=== PATIENT | male | born 1945 | race Caucasian/White ===

== ENCOUNTER 2017-02-13 08:47 | Inpatient (IN) | payer MEDICARE ==
--- NOTE | 2017-02-13 10:22 | CT ---
CT HEAD WITHOUT CONTRAST: Technique: Multiple axial tomograms were obtained through the head without IV enhancement. History: Trauma. Syncope. Fall. FINDINGS: Mild volume loss in the and associated ventriculomegaly. Mild chronic ischemic white matter change. N o evidence of intracranial hemorrhage. No evidence of acute infarct or edema. Diffuse mucosal edema i s seen in the ethmoid air cells, maxillary sinuses and sphenoid air cells. IMPRESSION: Chronic changes consistent with age. No acute intracranial process. POS: [facility]
[2017-02-13 10:23] LABS: #Eosinphils 0.1 thou/uL (0.0-0.7); #Lymphocytes 1.3 thou/uL (1.20-3.40); #Monocytes 0.9 thou/uL (0.11-0.59); #Neutrophils 12.3 thou/uL (1.40-6.50); %Basophils 0.1 % (0.0-1.0); %Eosinophils 0.5 % (0.0-10.0); %Monocytes 5.9 % (0.0-10.0); Hematocrit 53.3 % (42.0-52.0); Mean Platelet Volume 7.4 fL (7.4-10.4); Red Blood Cell (RBC) Count 5.67 mill/uL (4.70-6.10); White Blood Cell (WBC) Count 14.6 thou/uL (4.8-10.8)
--- NOTE | 2017-02-13 10:24 | RAD ---
SINGLE VIEW OF THE CHEST: Comparison: 01-05-10 History: Fall at home. Altered mental status. FINDINGS: Single view of the chest shows a normal sized cardiomediastinal silhouette. There is a left subclavia n pacemaker with its tips in the right atrium and ventricle. There is no evidence of consolidation, m ass or pleural effusion. IMPRESSION: No evidence of acute cardiopulmonary disease. POS: [facility]
--- NOTE | 2017-02-13 10:28 | CT ---
CT FACIAL BONES: Technique: Multiple axial tomograms were obtained through the facial bones with multiplanar reconstru ction. History: Syncope with fall. Injury to face. FINDINGS: There is evidence of a fracture involving the distal nasal ridge centrally and slightly to the right of midline. No significant overlying soft tissue swelling is seen and this may represent a remote fra cture. Recommend clinical correlation. The orbits appear intact. Lamina papyracea appear intact although there is diffuse mucosal edema invo lving the ethmoid air cells. Mucosal edema is seen in the frontal air cells and frontal recesses. Zyg billy appear intact. The maxilla appears intact although there is diffuse mucosal thickening seen in th e periphery of both maxillary sinuses. This may be chronic because there is suggestion of some mild t hickening of the maxillary sinus graham. The mandible appears intact. IMPRESSION: 1. There is evidence of a slightly depressed fracture involving the distal nasal ridge, age indetermi alley. Correlate clinically. 2. No other acute facial fracture seen. 3. Diffuse paranasal sinus mucosal disease as described. POS: [facility]
--- NOTE | 2017-02-13 10:31 | CT ---
CT CERVICAL SPINE WITHOUT CONTRAST: Comparison: None. History: Fall with syncope. Neck pain. Technique: Multiple contiguous axial tomograms were obtained through the cervical spine without contr ast. Sagittal and coronal reformats were performed. FINDINGS: There is a fracture of the left axillary ring of C1. This involves a fracture anteriorly and posterio rly. No other fractures of the cervical spine are seen. There is normal alignment of the vertebral kiley dies without subluxation. Normal alignment of the C1-2 interface is seen. Normal alignment of the sku ll base with the cervical spine is seen. The posterior facets are well aligned. Moderate degenerative changes are seen in the cervical spine. Nuchal calcifications are seen posteriorly. IMPRESSION: 1. Fracture of the left axillary ring of C1. Dr. Babcock notified of findings at 10:00 a.m. on 02-13-17. POS: [facility]
[2017-02-13 10:33] LABS: PTT 32.2 SEC (22.9-36.1)
[2017-02-13 10:37] LABS: Prothrombin Time 14.6 SEC (12.0-14.7)
[2017-02-13 10:49] LABS: ALT (SGPT) 34 U/L (8-55); AST (SGOT) 23 U/L (5-34); Alkaline Phosphatase 80 U/L (40-150); Anion Gap 12 mmol/L (10-20); BUN (Urea Nitrogen) 21 mg/dL (8.4-25.7); Bilirubin, Total 1.6 mg/dL (0.2-1.2); CK (CPK) 122 U/L (30-200); Calc. Creatinine Clearance 0 mL/min (70-130); Calcium 9.3 mg/dL (7.8-10.44); Carbon Dioxide 29 mmol/L (23-31); Chloride 103 mmol/L (98-107); Estimated GFR-MDRD 52; Globulin 3.2 g/dL (2.4-3.5); Lipase 31 U/L (8-78); Protein, Total 7.3 g/dL (5.8-8.1)
[2017-02-13 10:53] LABS: Troponin I Less than 0.010 ng/mL (< 0.028)
[2017-02-13] MEDS ORDERED: Lidocaine 1% w/Epinephrine 1:100K 20 ML VIAL ONE (11:09)
[2017-02-13] MEDS ORDERED: Ondansetron HCl/PF 4 MG/2 ML Vial IVP PRN (14:56)
[2017-02-13] MEDS ORDERED: Dextrose 50% Abboject 50 ML SYRINGE SLOW IVP PRN (14:56)
[2017-02-13] MEDS ORDERED: hydrALAZINE 20 MG/ML VIAL SLOW IVP PRN (14:56)
[2017-02-13] MEDS ORDERED: Dextrose 5% in Water 1,000 ML IV PRN (14:56)
[2017-02-13 15:04] VITALS: BMI 23.8
--- NOTE | 2017-02-13 16:10 | HP ---
DATE OF ADMISSION: 02/13/2017 DATE OF CONSULTATION: 02/13/2017 ATTENDING PHYSICIAN: Roel Sanchez D.O. CONSULTING PHYSICIAN: Joseph Daniels M.D., Neurosurgery. HISTORY OF PRESENT ILLNESS: A 71-year-old male who presented to the ED today after an unwitnessed fall. Patient has a history of Alzheimer's dementia and events leading to the fall are limited. The patient's reported that she noticed the patient was more shaky than normal this morning when she gave him his breakfast and then subsequently left for work. She then called a friend to go check on the patient about one hour later. She then got a call from the friend saying she found the patient down with a laceration on his scalp. Patient has a history of syncope with a fall one year ago after which a pacemaker was placed. He is currently on Eliquis for atrial fibrillation. Workup in the ED identified C1 fracture. Brain CT was read as negative; however , neurosurgeon identified a small tentorial subdural hematoma. Trauma Services have been consulted for admission and management. PAST MEDICAL HISTORY: Hypertension, Alzheimer dementia, asthma, atrial fibrillation. PAST SURGICAL HISTORY: Pacemaker and hernia repair. SOCIAL HISTORY: Patient lives at home with his . denies the patient' s alcohol, drug or tobacco use. ALLERGIES: No known drug allergies. MEDICATIONS: Albuterol sulfate 2 puffs inhaled 4 times daily, Eliquis 5 mg tab p.o. twice daily, vitamin D3 2000 units p.o. daily, Aricept 10 mg p.o. daily, metoprolol 25 mg p.o. daily, Singulair 10 mg p.o. at bedtime. REVIEW OF SYSTEMS: Unable to be obtained secondary to patient's dementia. PHYSICAL EXAMINATION: VITAL SIGNS: Blood pressure 162/89, pulse 63, respirations 17, temperature 98.2 oral, O2 sat 99% room air. GENERAL: A 71-year-old male in no acute distress. HEENT: Laceration to the crown and occipital scalp which has been closed with sutures by DENI Linn. No uncontrolled bleeding. NECK: Cervical collar is in place. No tracheal deviation, no JVD. PULMONARY: Bilateral breath sounds clear to auscultation. No respiratory distress. CARDIOVASCULAR: Regular rate and rhythm. Heart sounds normal. ABDOMEN: Soft, nontender, nondistended. EXTREMITIES: Range of motion normal, cap refill brisk. NEUROLOGIC: GCS 14, eyes 4, verbal 4, motor 6. LABORATORY DATA: WBC 14.6, RBC 5.67, HGB 17.9 HCT 53.3, platelets 342. Sodium 140, potassium 3.9, chloride 103, carbon dioxide 29, anion gap 12, BUN 21, creatinine 1.34, glucose 128, total bilirubin 1.6. Diagnostic imaging, cervical spine CT, fracture of left axillary ring of C1. Brain CT, no acute intracranial process per radiologist read, tentorial subdural hematoma per neurosurgeon read. ASSESSMENT AND PLAN: 1. A 71-year-old female status post unwitnessed fall. 2. C1 fracture. 3. Subdural hematoma. 4. History of anticoagulant use - Eliquis. 5. History of dementia. 6. Laceration to scalp closed by the ER M.D. PLAN: 1. Admit to the intermediate care unit via trauma services. 2. Consult to Dr. Daniels, Neurosurgery. 3. Local wound care. 4. Repeat head CT in a.m. 5. Place Falcon collar to be worn at all times. 6. No chemical DVT prophylaxis or blood thinners. 7. N.p.o., IV fluids. Patient's physical exam, assessment and plan were discussed at length with the patient's . Extensive discussion was held regarding patient's code status. reports that previously patient and she decided that the patient would prefer to be DNR. At this time, she requires patient be made DNR. She reports understanding of assessment and plan of care. She agrees with recommendations. The patient was seen and examined with Dr. Sanchez. SOPHIA
[2017-02-13] MEDS: Sodium Chloride 0.9% 1,000 ML IV SCH ×2 (16:25→22:40)
[2017-02-13] MEDS: Montelukast Sodium 10 mg Tablet PO SCH (21:16)
[2017-02-13] MEDS: Famotidine/PF 20 mg/2ml Vial SLOW IVP SCH (21:16)
[2017-02-13] MEDS: Metoprolol Tartrate 25 MG TAB PO SCH (21:16)
[2017-02-13] MEDS ORDERED: Acetaminophen 500 MG TAB PO SCH (22:00)
--- NOTE | 2017-02-14 01:04 | CON ---
This is Tashi Gibbons PA-C, dictating for Dr. Joseph Daniels. DATE OF CONSULTATION: 02/13/2017 This is a 50-minute initial patient consult in which greater than 50% of the exam was spent in counse ling and coordinating the patient's care. The remainder of the exam was spent in review of patient's medical record and appropriate imaging studies. CHIEF COMPLAINT: Status post fall with tentorial subdural hematoma and C1 burst fracture. HISTORY OF PRESENT ILLNESS: Mr. Olivier is a pleasant, but demented 71-year-old male who presented t [facility] Emergency Room with his for the above complaints. Apparently, the patient fell res ulting in an axial load injury sustaining a scalp laceration as well as a tentorial subdural hematoma found on CT scan. The patient is currently on Eliquis for atrial fibrillation. The patient's CT sc an of the cervical spine showed a nondisplaced C1 burst fracture, also known as a Deng fracture. The patient has a significant expressive aphasia and his dementia significantly limits his history and physical exam. His is at bedside, notes that he is at neurologic baseline, although current ly during the exam. She notes that he has been experiencing some sundowning symptoms. PHYSICAL EXAMINATION: The patient remains with his eyes closed, although does open his eyes to voice . His GCS is currently 14. He attempts to follow commands in all 4 extremities to do this int ermittently. Pupils are equal, round and reactive bilaterally. The patient is predominately nonverb al, although will answer yes or no to some questions. I am unable to determine if he has pronator dr anusha. IMPRESSION AND DIAGNOSES: Status post fall with tentorial subdural hematoma and C1 left burst fractu re. PLAN: I have discussed the head and neck CT findings with Dr. Daniels as well as the patient's . At this time, we will repeat the patient's head CT in the morning and hold his blood thinners. I wo uld like his head of bed should be elevated at 30 degrees at all times and he should remain in his As pen collar at all times. I did let the patient's know that he should not require neurosurgical intervention for either of his injuries, although he will need to remain in an [place] collar at all ti mes, Wake collar for showers. I will make him n.p.o. at midnight and await the CT scan resul ts. I would like his systolic blood pressure to remain less than 160. I have also discussed the anselmo kim's case with the trauma nurse practitioner. We will follow up on the patient's neurologic exam a nd head CT, otherwise please call with any changes or concerns.
[2017-02-14 05:21] LABS: Anion Gap 11 mmol/L (10-20); BUN (Urea Nitrogen) 23 mg/dL (8.4-25.7); Calc. Creatinine Clearance 60 mL/min (70-130); Calcium 8.5 mg/dL (7.8-10.44); Carbon Dioxide 28 mmol/L (23-31); Chloride 108 mmol/L (98-107); Estimated GFR-MDRD 52; Magnesium 2.2 mg/dL (1.6-2.6); Phosphorus 3.1 mg/dL (2.3-4.7)
--- NOTE | 2017-02-14 05:29 | CON ---
DATE OF CONSULTATION: 02/14/2017 PRIMARY CARE PROVIDER: Dr. Smith. PRIMARY SERVICE ATTENDING: Dr. Sanchez. REASON FOR CONSULTATION: General medical management. HISTORY OF PRESENT ILLNESS: This is a 71-year-old male who initially presented to [facility] Emergency Department after an unwitnessed fall. Patient with a known histo ry of advanced dementia of Alzheimer's type with apparent unwitnessed fall at home. 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 Patient apparently was found down by a family friend discovered with laceration on the sc alp. The patient apparently had a syncopal event approximately 1 year prior to this evaluation at ich point a pacemaker was placed. Currently, on chronic anticoagulation with Eliquis for chronic atr ial fibrillation. Evaluation in the emergency department revealed a C1 burst fracture, at which poin t the patient was placed in an [place] collar. CT of the brain was initially read as negative; however , review by the neurosurgical team showed a small tentorial subdural hematoma. The patient currently managed conservatively in the intermediate care unit. The history is obtained [facility]. Review of the emergency room records and prior consult reports as patient is unable to provide a coherent history due to advanced dementia. PAST MEDICAL HISTORY: 1. Hypertension. 2. Chronic kidney disease stage 3. 3. Chronic atrial fibrillation on chronic anticoagulation with Eliquis. 4. Status post pacemaker placement. 5. Alzheimer dementia, advanced. 6. History of asthma. 7. History of right retinal occlusion with retinopathy. PAST SURGICAL HISTORY: 1. Status post inguinal hernia repair. 2. Status post pacemaker placement. CURRENT MEDICATIONS: 1. ProAir RespiClick 2 puffs inhaled q.i.d. p.r.n. 2. Eliquis 5 mg p.o. b.i.d. 3. Vitamin D3 2000 units p.o. daily. 4. Aricept 10 mg p.o. daily. 5. Metoprolol tartrate 25 mg p.o. b.i.d. 6. Singulair 10 mg p.o. at bedtime. ALLERGIES: No known drug allergies. FAMILY HISTORY: Mom with lung cancer. Dad with history of CVA. SOCIAL HISTORY: Patient resides in [place], [place]. 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 No alcoh ol, tobacco, or illicit drug use. Remote history of tobacco use as a teenager. REVIEW OF SYSTEMS: Unobtainable as patient has advanced dementia. PHYSICAL EXAMINATION: VITAL SIGNS: Currently, blood pressure 156/73, pulse 64, respiratory rate 18, temperature 100.2 degr ees Fahrenheit, O2 saturation 100% on room air. GENERAL APPEARANCE: This is a 71-year-old male lying quietly on the hospital bed, alert an d oriented x1 to name and in no acute distress. HEENT: Pupils are equal, round, and reactive to light and accommodation. Extraocular muscles are in tact. No scleral icterus, no conjunctival injection. Scalp with crescent-shaped laceration at the v ertex. Nares patent. OP is clear. Cervical collar in place. NECK: Supple, no adenopathy appreciated. No JVD noted. CHEST: Lungs are clear to auscultation bilaterally. CARDIOVASCULAR: S1, S2 with distant heart sounds. ABDOMEN: Rounded, soft, nontender, nondistended. Bowel sounds are positive in all four quadrants. There is no hepatosplenomegaly, no abdominal bruits, no rebound or guarding appreciated. EXTREMITIES: Warm and dry with fair turgor. No clubbing, cyanosis or asymmetric edema appreciated. Pulses palpable distally at the dorsalis pedis, posterior tibial, and popliteal arteries bilaterally . Capillary refill less than 2 seconds. NEUROLOGIC: Expressive aphasia noted. Opens eyes to name. Not observed ambulatory during this exam . PERTINENT LABORATORY AND X-RAY FINDINGS: Sodium 140, potassium 3.9, chloride 103, CO2 of 29, BUN 21, creatinine 1.34 with estimated GFR 52, glucose 128, calcium 9.3, total bilirubin 1.6, AST 23, ALT of 34, alkaline phosphatase 80, Troponin I negative x1. Albumin 4.1, lipase 31. CBC showed a white bl ood cell count 14.6, hemoglobin 18, hematocrit 53, platelet count 242 with 85% neutrophilia. PT 14.6 , INR 1.1, PTT 32.2. CT of the brain without contrast dated 02/13/2017 showed chronic changes consis tent with age. No acute intracranial process identified. CT of the cervical spine dated 02/13/2017 showed fracture of the left axillary ring of C1. Portable chest x-ray dated 02/13/2017 showed no acu te cardiopulmonary process. CT of the facial bones dated 02/13/2017 showed slightly depressed fractu re involving the distal nasal ridge. Repeat CT of the brain dated 02/14/2017 showed minimal left ten torial thickening and trace subdural hematoma. Telemetry monitoring shows atrial flutter with contro lled rate in the 60s. ASSESSMENT AND PLAN: 1. C1 burst fracture status post mechanical fall. Conservative management with a cervical collar. Neurosurgery and Trauma Service following clinically. 2. Minimal subdural hematoma. No surgical intervention recommended. Continue to observe clinically . 3. Status post mechanical fall versus syncope, etiology unclear. Unwitnessed per report. Continue symptomatic and supportive management. General fall risk precautions. PT evaluation for functional assessment. 4. Chronic atrial fibrillation with chronic anticoagulation with Eliquis. Hold Eliquis due to small subdural hematoma. Patient may not be an appropriate candidate for ongoing anticoagulation due to h istory of falls with advanced dementia. 5. Alzheimer's dementia advanced. Resume Aricept 10 mg p.o. daily. 6. Hypertension. Continue metoprolol 25 mg p.o. b.i.d. Continue serial blood pressure monitoring. 7. Status post scalp laceration post-mechanical fall. Continue local wound care. Pain control as c linically indicated. 8. Prophylaxis. Sequential compression devices while in bed. Pepcid 20 mg p.o. b.i.d. 9. CODE STATUS: DO NOT RESUSCITATE. Confirmed with patient's . Thank you for the consult. We will continue to follow with primary service.
[2017-02-14 05:30] LABS: #Eosinphils 0.1 thou/uL (0.0-0.7); #Lymphocytes 1.8 thou/uL (1.20-3.40); #Monocytes 1.1 thou/uL (0.11-0.59); #Neutrophils 8.8 thou/uL (1.40-6.50); %Eosinophils 0.6 % (0.0-10.0); %Lymphocytes 15.4 % (21.0-51.0); %Monocytes 9.7 % (0.0-10.0); Hematocrit 43.7 % (42.0-52.0); Mean Platelet Volume 7.2 fL (7.4-10.4); Red Blood Cell (RBC) Count 4.59 mill/uL (4.70-6.10); White Blood Cell (WBC) Count 11.8 thou/uL (4.8-10.8)
[2017-02-14] MEDS: Sodium Chloride 0.9% 1,000 ML IV SCH (06:30)
--- NOTE | 2017-02-14 07:51 | CT ---
PRELIMINARY REPORT/[facility]/EMERGENCY AFTER HOURS PROCEDURE: EXAM: CT Head Without Intravenous Contrast CLINICAL HISTORY: 71 years old, male; Condition or disease; Other: F/u tentorial sdh; Additional info: Previous exam in vrad worklist under CT face accession TECHNIQUE: Axial computed tomography images of the head/brain without intravenous contrast. COMPARISON: No relevant prior studies available. FINDINGS: Brain: Question minimal thickening of the left tentorium Mild volume loss. Mild white matter disease. No edema. Ventricles: Unremarkable. No ventriculomegaly. Bones/joints: Unremarkable. No acute fracture. Soft tissues: Unremarkable. Sinuses: Air-fluid levels in the sphenoid sinuses with associated mucosal thickening. Mucosal thicken ing in the anterior paranasal sinuses. Mastoid air cells: Unremarkable as visualized. No mastoid effusion. IMPRESSION: Question minimal left tentorial thickening/trace subdural hemorrhage, grossly stable Thank you for allowing us to participate in the care of your patient. Dictated and Authenticated by: Douglas Ty MD 02/14/2017 4:35 AM Central Time ([place] & [place]) FINAL REPORT CT HEAD WITHOUT CONTRAST: COMPARISON: 02/13/17. FINDINGS: Mild cortical volume loss. There is some questionable thickening of the tentorium which is unchanged from 02/13/17 suggesting ch ronic stable finding. No acute hemorrhage. No interval change. I am in agreement with the preliminary report. POS: [facility]
--- NOTE | 2017-02-14 09:49 | PRG ---
DATE OF SERVICE: 02/14/2017 This is a 30 minute initial hospital visit note in which 30 minutes were spent in review of the imagi ng, record, evaluation and examination of the patient, and formulation of a plan. Greater than 50% o f the time was spent in counseling on Fatemeh Olivier. CHIEF COMPLAINT: Tentorial acute subdural hematoma status post fall onto vertex with a Deng's f racture. HISTORY OF PRESENT ILLNESS: Mr. Olivier is a 71-year-old man with dementia. He fell yesterday. He has had his laceration repaired. His is the primary caregiver. She is also a nurse. Head CT d emonstrated a nonworrisome acute subdural hematoma along the tentorium. He is on Eliquis for atrial fibrillation. The repeat head CT this morning demonstrates already improvement in acute subdural hem atoma. Cervical spine CT demonstrated a Deng's fracture, eccentric to the left. We are managin g this in a C-collar. PHYSICAL EXAMINATION: On exam he is verbal, but is at times inappropriate to the context. This is h is baseline his states, he follows commands otherwise. He is in a well-fitting collar. IMPRESSION AND PLAN: We will arrange for a Glade collar. The duration of the collar should b e at all times for the next 3 months. We will arrange followup in 1 month with a repeat head CT off Eliquis and upright AP, lateral and open mouth odontoid cervical spine x-rays. He may be dismissed w henever deemed stable. DIAGNOSES: 1. Deng's fracture. 2. Tentorial acute subdural hematoma status post fall on vertex of skull.
[2017-02-14] MEDS: Donepezil HCl 10 MG TAB PO SCH (09:57)
[2017-02-14] MEDS: Famotidine/PF 20 mg/2ml Vial SLOW IVP SCH ×2 (09:57→21:07)
[2017-02-14] MEDS: Metoprolol Tartrate 25 MG TAB PO SCH ×2 (09:57→21:08)
--- NOTE | 2017-02-14 13:54 | PDOC.PN ---
- Subjective Encounter Start Date: 02/14/17 Encounter Start Time: 12:30 Subjective: awake, not oriented, is talking but most of it wont make sense - Objective Resuscitation Status: Resuscitation Status DNR:Do Not Resuscitate MAR Reviewed: Yes Vital Signs & Weight: Vital Signs (12 hours) Temp Pulse Resp BP Pulse Ox 02/14/17 08:00 98.7 F 65 18 02/14/17 07:19 98.7 F 65 18 165/78 H 97 02/14/17 06:21 64 18 169/80 H 98 02/14/17 04:00 98.8 F 64 16 158/72 H 99 02/14/17 02:18 64 16 147/73 H 98 Weight Weight 188 lb 3 oz I&O: 02/13/17 02/14/17 02/15/17 06:59 06:59 06:59 Intake Total 1510 Output Total 350 Balance 1160 Result Diagrams: 02/14/17 04:50 02/14/17 04:50 Phys Exam - Physical Examination HEENT: PERRLA, sclera anicteric Neck: no JVD in C.collar Respiratory: no wheezing, no rales Cardiovascular: RRR, no significant murmur Gastrointestinal: soft, non-tender, positive bowel sounds Musculoskeletal: no edema, pulses present Neurological: non-focal, moves all 4 limbs Dx/Plan (1) Paroxysmal A-fib Code(s): I48.0 - PAROXYSMAL ATRIAL FIBRILLATION Status: Chronic (2) HTN (hypertension) Code(s): I10 - ESSENTIAL (PRIMARY) HYPERTENSION Status: Chronic Qualifiers: Hypertension type: essential hypertension Qualified Code(s): I10 - Essential (primary) hypertension (3) Dementia Code(s): F03.90 - UNSPECIFIED DEMENTIA WITHOUT BEHAVIORAL DISTURBANCE Status: Chronic Qualifiers: Dementia type: Alzheimer's disease Alzheimer's disease onset: unspecified onset (4) C1 cervical fracture Code(s): S12.000A - UNSP DISP FX OF FIRST CERVICAL VERTEBRA, INIT FOR CLOS FX Status: Acute Qualifiers: Encounter type: subsequent encounter Fracture type: closed (5) SDH (subdural hematoma) Code(s): I62.00 - NONTRAUMATIC SUBDURAL HEMORRHAGE, UNSPECIFIED Status: Acute (6) Asthma Code(s): J45.909 - UNSPECIFIED ASTHMA, UNCOMPLICATED Status: Chronic Qualifiers: Asthma severity: mild Asthma persistence: intermittent Asthma complication type: unspecified Qualified Code(s): J45.20 - Mild intermittent asthma, uncomplicated (7) CKD (chronic kidney disease) stage 3, GFR 30-59 ml/min Code(s): N18.3 - CHRONIC KIDNEY DISEASE, STAGE 3 (MODERATE) Status: Chronic (8) Pacemaker Code(s): Z95.0 - PRESENCE OF CARDIAC PACEMAKER Status: Chronic - Plan may tx to med/med surg if ok with surgery -: is in a collar -: oral diet, make sure he is not aspirating -: may dc iv fluids -: continue lopressor, singulair and may hold aricept for now * . Review of Systems - Medications/Allergies Allergies/Adverse Reactions: Allergies Allergy/AdvReac Type Severity Reaction Status Date / Time No Known Drug Allergies Allergy Verified 02/13/17 15:04 Medications: Current Medications Dextrose/Water (Dextrose 50%) 25 gm SLOW IVP PRN PRN PRN Reason: Hypoglycemia Donepezil HCl (Aricept) 10 mg PO DAILY [facility] Last Admin: 02/14/17 09:57 Dose: 10 mg Famotidine (Pepcid) 20 mg SLOW IVP Q12HR [facility] Last Admin: 02/14/17 09:57 Dose: 20 mg Glucagon (Glucagon) 1 mg IM PRN PRN PRN Reason: Hypoglycemia Hydralazine HCl (Apresoline) 10 mg SLOW IVP Q6H PRN PRN Reason: SBP GREATER THAN 160 Dextrose/Water (D5w) 1,000 mls @ 0 mls/hr IV .Q0M PRN; As Directed PRN Reason: Hypoglycemia Metoprolol Tartrate (Lopressor) 25 mg PO BID [facility] Last Admin: 02/14/17 09:57 Dose: 25 mg Montelukast Sodium (Singulair) 10 mg PO HS [facility] Last Admin: 02/13/17 21:16 Dose: 10 mg Ondansetron HCl (Zofran) 4 mg IVP Q6H PRN PRN Reason: Nausea Sodium Chloride (Flush - Normal Saline) 10 ml IVF PRN PRN PRN Reason: Saline Flush
--- NOTE | 2017-02-14 14:31 | PRG ---
DATE OF SERVICE: 02/14/2017 ATTENDING PHYSICIAN: Dr. Chris Wilson. SUBJECTIVE: A 71-year-old male admitted one day ago, status post fall with C1 burst fracture that thrasher s been managed in the [place] collar and a small tentorial subdural hematoma. He was placed in the Int ensive Care Unit where he has remained stable overnight. Patient has a history of dementia and has p reviously been on anticoagulation for atrial fibrillation. He had minimal subdural hematoma noted on the original CT scan; however, that has improved. Neurosurgery has cleared the patient to be discha rged when medically appropriate to do so. Hospital medicine is following for general medical managem ent. OBJECTIVE: VITAL SIGNS: Temperature 98.7, 65 pulse, 18 respirations, 97% O2 sat on room air and 165/78 blood pr essure. GENERAL: A 72-year-old male in no acute distress. HEENT: Scalp laceration to the crown and occipital scalp closed with sutures. No active bleeding. No infection noted. PULMONARY: Bilateral breath sounds clear to auscultation. No respiratory distress. CARDIOVASCULAR: Regular rate and rhythm. Normal heart sounds. ABDOMEN: Soft, nontender and nondistended. EXTREMITIES: Moves all extremities well. Pulses are palpable. Cap refill brisk. NEUROLOGIC: GCS 14. E4 V4 M6. Expressive aphasia noted. Able to speak his name. ASSESSMENT: A 71-year-old male with: 1. Status post fall. 2. Minimal subdural hematoma, improving on subsequent CT scan. No neurosurgical intervention recomm ended. 3. C1 fracture managed with [place] collar. No neurosurgical intervention recommended. 4. Chronic atrial fibrillation, on Eliquis. 5. Progressive dementia. 6. Status post closure of scalp laceration. PLAN: 1. Start on regular diet 2. Discontinue IV fluids. 3. Continue [place] collar until cleared by Neurosurgery. 4. Continue to hold chemical DVT prophylaxis and all anticoagulation until cleared by Neurosurgery. 5. Continue home medications. 6. PT, OT evaluation for mobilization. 7. Case management consult for discharge planning. The patient will likely need placement after thi s hospitalization. 8. Transfer out to the surgical floor today. We will possibly need a sitter if the family is not at bedside. Physical examination, assessment and plan of care were discussed with attending trauma surgeon.
[2017-02-14] MEDS ORDERED: Haloperidol Lactate 5 MG/ML VIAL IM PRN (17:31)
[2017-02-14] MEDS ORDERED: Non-Formulary Item 1 EACH (Albuterol Sulfate [Proair Respiclick] 2 PUFF) INH PRN (17:32)
[2017-02-14] MEDS ORDERED: Ziprasidone 20 MG VIAL IM PRN (17:52)
--- NOTE | 2017-02-14 17:57 | PRG ---
DATE OF SERVICE: 02/14/2017 Please see Aretha Rodriguez note for details. SUBJCETIVE: Mr. Olivier is having some confusion this evening. His states he get some small do se of Benadryl at home for this and it is normal. He was more agitated this afternoon, especially wh en he had urinate. He awakens to voice, especially to the . OBJECTIVE: VITAL SIGNS: He has been afebrile. Vital signs are stable. ABDOMEN: Soft, nontender. C-collar is in place for his C1 fracture. ASSESSMENT: Confusion at times. PLAN: Probably safe to go to the floor with a sitter. We will use Cassie garsia in agitation.
[2017-02-14] MEDS ORDERED: Amlodipine 10 MG TAB PO SCH (19:45)
[2017-02-14] MEDS: cloNIDine 0.1 MG TAB PO SCH (21:07)
[2017-02-14] MEDS: Montelukast Sodium 10 mg Tablet PO SCH (21:09)
[2017-02-14] MEDS: Albuterol Sulfate 1.25 MG/3 ML NEB NEB SCH (22:39)
[2017-02-15] MEDS: Albuterol Sulfate 1.25 MG/3 ML NEB NEB SCH ×2 (08:19→15:28)
[2017-02-15] MEDS: Metoprolol Tartrate 25 MG TAB PO SCH ×2 (09:36→20:40)
[2017-02-15] MEDS: Amlodipine 10 MG TAB PO SCH (09:36)
[2017-02-15] MEDS: cloNIDine 0.1 MG TAB PO SCH ×2 (09:37→20:40)
[2017-02-15] MEDS: Donepezil HCl 10 MG TAB PO SCH (09:37)
[2017-02-15] MEDS: Famotidine/PF 20 mg/2ml Vial SLOW IVP SCH ×2 (09:37→20:40)
--- NOTE | 2017-02-15 13:27 | PDOC.PN ---
- Subjective Encounter Start Date: 02/15/17 Encounter Start Time: 08:30 Subjective: awake, working with OT -: is amb in hallway -: not oriented - Objective Resuscitation Status: Resuscitation Status DNR:Do Not Resuscitate MAR Reviewed: Yes Vital Signs & Weight: Vital Signs (12 hours) Temp Pulse Resp BP Pulse Ox 02/15/17 12:00 98.6 F 76 14 110/56 L 95 02/15/17 08:19 76 16 02/15/17 08:00 97.7 F 90 16 159/88 H 97 02/15/17 04:22 98.9 F 100 20 147/80 H 93 L Weight Weight 188 lb 3 oz I&O: 02/14/17 02/15/17 02/16/17 06:59 06:59 06:59 Intake Total 1510 340 Output Total 350 Balance 1160 340 Result Diagrams: 02/14/17 04:50 02/14/17 04:50 Phys Exam - Physical Examination HEENT: PERRLA, moist MMs Neck: no JVD, supple Respiratory: no wheezing, no rales Cardiovascular: RRR, no significant murmur Gastrointestinal: soft, non-tender, positive bowel sounds Musculoskeletal: no edema, pulses present Neurological: non-focal, moves all 4 limbs Dx/Plan (1) Paroxysmal A-fib Code(s): I48.0 - PAROXYSMAL ATRIAL FIBRILLATION Status: Chronic (2) HTN (hypertension) Code(s): I10 - ESSENTIAL (PRIMARY) HYPERTENSION Status: Chronic Qualifiers: Hypertension type: essential hypertension Qualified Code(s): I10 - Essential (primary) hypertension (3) Dementia Code(s): F03.90 - UNSPECIFIED DEMENTIA WITHOUT BEHAVIORAL DISTURBANCE Status: Chronic Qualifiers: Dementia type: Alzheimer's disease Alzheimer's disease onset: unspecified onset (4) C1 cervical fracture Code(s): S12.000A - UNSP DISP FX OF FIRST CERVICAL VERTEBRA, INIT FOR CLOS FX Status: Acute Qualifiers: Encounter type: subsequent encounter Fracture type: closed (5) SDH (subdural hematoma) Code(s): I62.00 - NONTRAUMATIC SUBDURAL HEMORRHAGE, UNSPECIFIED Status: Acute (6) Asthma Code(s): J45.909 - UNSPECIFIED ASTHMA, UNCOMPLICATED Status: Chronic Qualifiers: Asthma severity: mild Asthma persistence: intermittent Asthma complication type: unspecified Qualified Code(s): J45.20 - Mild intermittent asthma, uncomplicated (7) CKD (chronic kidney disease) stage 3, GFR 30-59 ml/min Code(s): N18.3 - CHRONIC KIDNEY DISEASE, STAGE 3 (MODERATE) Status: Chronic (8) Pacemaker Code(s): Z95.0 - PRESENCE OF CARDIAC PACEMAKER Status: Chronic - Plan is amb in hallway -: will need rehab/swing bed -: htn is controlled -: geodon prn -: dc plan per trauma team/nsx * . Review of Systems - Medications/Allergies Allergies/Adverse Reactions: Allergies Allergy/AdvReac Type Severity Reaction Status Date / Time No Known Drug Allergies Allergy Verified 02/13/17 15:04 Medications: Current Medications Albuterol Sulfate (Albuterol Sulfate) 1.25 mg NEB Q5IT-BW [facility] Last Admin: 02/15/17 08:19 Dose: 1.25 mg Amlodipine Besylate (Norvasc) 10 mg PO DAILY [facility] Last Admin: 02/15/17 09:36 Dose: 10 mg Clonidine (Catapres) 0.1 mg PO BID [facility] Last Admin: 02/15/17 09:37 Dose: 0.1 mg Dextrose/Water (Dextrose 50%) 25 gm SLOW IVP PRN PRN PRN Reason: Hypoglycemia Donepezil HCl (Aricept) 10 mg PO DAILY [facility] Last Admin: 02/15/17 09:37 Dose: 10 mg Famotidine (Pepcid) 20 mg SLOW IVP Q12HR [facility] Last Admin: 02/15/17 09:37 Dose: 20 mg Glucagon (Glucagon) 1 mg IM PRN PRN PRN Reason: Hypoglycemia Hydralazine HCl (Apresoline) 10 mg SLOW IVP Q6H PRN PRN Reason: SBP GREATER THAN 160 Dextrose/Water (D5w) 1,000 mls @ 0 mls/hr IV .Q0M PRN; As Directed PRN Reason: Hypoglycemia Metoprolol Tartrate (Lopressor) 25 mg PO BID [facility] Last Admin: 02/15/17 09:36 Dose: 25 mg Montelukast Sodium (Singulair) 10 mg PO HS [facility] Last Admin: 02/14/17 21:09 Dose: 10 mg Ondansetron HCl (Zofran) 4 mg IVP Q6H PRN PRN Reason: Nausea Sodium Chloride (Flush - Normal Saline) 10 ml IVF PRN PRN PRN Reason: Saline Flush Ziprasidone (Geodon) 10 mg IM Q4H PRN PRN Reason: Agitation Last Admin: 02/15/17 02:47 Dose: 10 mg
--- NOTE | 2017-02-15 14:54 | PRG ---
DATE OF SERVICE: 02/15/2017 ATTENDING PHYSICIAN: Dr. Luque. SUBJECTIVE: A 71-year-old male, hospital day #2, status post fall with C1 burst fracture and a tento rial subdural hematoma. He has been followed by Neurosurgery, who recommended no neurosurgical inter vention. He is cleared for discharge by Neurosurgery with followup in 1 month. He was transferred o ut of the ICU to the surgical floor last night. He received 1 dose of Geodon for agitation last nigh t. OBJECTIVE: VITAL SIGNS: Temperature 97.7, pulse 90, respirations 16, O2 saturation 97%, blood pressure 159/88. GENERAL: Well-nourished, well-developed male, in no acute distress. He remains with expressive apha chey. HEENT: Scalp laceration to the crown and occipital scalp closed with sutures. PULMONARY: Bilateral breath sounds clear to auscultation. No respiratory distress. CARDIOVASCULAR: Regular rate and rhythm. Normal heart sounds. ABDOMEN: Soft, nontender, nondistended. EXTREMITIES: Moves all extremities well. Pulses are palpable. Cap refill brisk. NEUROLOGIC: GCS 14, E4 V4 M6. Expressive aphasia noted. Able to speak his name. He follows yousif beth. ASSESSMENT: 1. A 71-year-old male status post fall. 2. Minimal subdural hematoma, improving. Neurosurgical signed off. 3. C1 fracture, managed in [place] collar. The patient will follow up in 1 month. 4. Chronic atrial fibrillation, previously on Eliquis. 5. Progressive dementia. 6. Status post closure of scalp laceration. PLAN: 1. Continue on regular diet. 2. Mobilize with physical and occupational therapy. 3. Sitter at bedside due to patient's impulsiveness and dementia. 4. Continue to hold chemical DVT prophylaxis until cleared by Neurosurgery. 5. Case management consulted for discharge planning. Patient to have SNF referral. This patient was reviewed with Dr. Luque, who agrees with the assessment and plan of care.
[2017-02-15] MEDS: Montelukast Sodium 10 mg Tablet PO SCH (20:40)
[2017-02-16] MEDS: Albuterol Sulfate 1.25 MG/3 ML NEB NEB SCH ×3 (00:12→14:23)
[2017-02-16] MEDS: Famotidine/PF 20 mg/2ml Vial SLOW IVP SCH ×2 (09:21→20:46)
[2017-02-16] MEDS: Donepezil HCl 10 MG TAB PO SCH (09:21)
[2017-02-16] MEDS: Metoprolol Tartrate 25 MG TAB PO SCH ×2 (09:21→20:45)
[2017-02-16] MEDS: cloNIDine 0.1 MG TAB PO SCH ×2 (09:21→20:45)
[2017-02-16] MEDS: Amlodipine 10 MG TAB PO SCH (09:21)
--- NOTE | 2017-02-16 10:58 | PRG ---
DATE OF SERVICE: 02/16/2017 ATTENDING PHYSICIAN: Dr. Luque. This is Aretha Rodriguez, Nurse Practitioner, dictating daily progress note for Dr. Luque SUBJECTIVE: A 71-year-old male, hospital day #3 status post fall with C1 burst fracture and tentorial subdural hematoma. He has been cleared by Neurosurgery for discharge. He has been stable on the surgical floor with a sitter at bedside. He did not receive or need a dose of Geodon for agitation last night. OBJECTIVE: VITAL SIGNS: Temperature 98.6, pulse 69, respirations 16, O2 sat 97% room air, blood pressure 160/74. GENERAL: Well-nourished, well-developed male in no acute distress. HEENT: Scalp laceration to cranial and occipital scalp closed with sutures. No evidence of infection. PULMONARY: Bilateral breath sounds clear to auscultation. No respiratory distress. CARDIOVASCULAR: Regular rate and rhythm. Normal heart sounds. ABDOMEN: Soft, nontender, and nondistended. EXTREMITIES: Moves all extremities well. Capillary refill brisk. NEUROLOGIC: GCS 14, E4 V4 M6. Expressive aphasia. Able to speak his name. Follows commands. ASSESSMENT: 1. A 71-year-old male status post fall. 2. Minimal subdural hematoma. 3. C1 fracture managed in [place] collar. 4. Chronic atrial fibrillation, previously on Eliquis. 5. Progressive dementia. 6. Status post closure of scalp laceration. PLAN: 1. Continue a regular diet. 2. Continue to mobilize with Occupational and Physical Therapy. 3. Continue sitter at bedside due to the patient's impulsiveness and dementia. 4. Continue to hold chemical DVT prophylaxis until cleared by Neurosurgery. Hold Eliquis until cleared by Neurosurgery. 5. Discontinue Geodon at night. Add Benadryl 25 mg p.o. at bedtime p.r.n. This was the patient's previous medication regimen. 6. Reconcile and restart any home medications for dementia that were not previously started. This patient was reviewed with Dr. Luque who agrees with the assessment and plan. [facility]
--- NOTE | 2017-02-16 11:22 | PDOC.PN ---
- Subjective Encounter Start Date: 02/16/17 Encounter Start Time: 09:00 Subjective: is awake, not in distress - Objective Resuscitation Status: Resuscitation Status DNR:Do Not Resuscitate MAR Reviewed: Yes Vital Signs & Weight: Vital Signs (12 hours) Temp Pulse Resp BP BP Pulse Ox 02/16/17 09:21 74 160/74 H 02/16/17 08:05 96.8 F L 74 16 02/16/17 07:51 74 16 96 02/16/17 07:35 98.6 F 69 16 160/74 H 97 02/16/17 04:00 98 F 70 16 151/72 H 02/16/17 00:12 62 16 94 L 02/16/17 00:00 98.5 F 60 20 158/78 H 98 Weight Weight 188 lb 3 oz I&O: 02/15/17 02/16/17 02/17/17 06:59 06:59 06:59 Intake Total 340 890 Balance 340 890 Result Diagrams: 02/14/17 04:50 02/14/17 04:50 Phys Exam - Physical Examination HEENT: PERRLA, moist MMs Neck: no JVD, supple Respiratory: no wheezing, no rales Cardiovascular: RRR, no significant murmur Gastrointestinal: soft, non-tender Musculoskeletal: no edema, pulses present Neurological: non-focal, moves all 4 limbs Dx/Plan (1) Paroxysmal A-fib Code(s): I48.0 - PAROXYSMAL ATRIAL FIBRILLATION Status: Chronic (2) HTN (hypertension) Code(s): I10 - ESSENTIAL (PRIMARY) HYPERTENSION Status: Chronic Qualifiers: Hypertension type: essential hypertension Qualified Code(s): I10 - Essential (primary) hypertension (3) Dementia Code(s): F03.90 - UNSPECIFIED DEMENTIA WITHOUT BEHAVIORAL DISTURBANCE Status: Chronic Qualifiers: Dementia type: Alzheimer's disease Alzheimer's disease onset: unspecified onset Dementia behavioral disturbance: with behavioral disturbance Qualified Code(s): G30.9 - Alzheimer's disease, unspecified; F02.81 - Dementia in other diseases classified elsewhere with behavioral disturbance; F02.81 - Dementia in other diseases classified elsewhere with behavioral disturbance; F02.81 - Dementia in other diseases classified elsewhere with behavioral disturbance (4) C1 cervical fracture Code(s): S12.000A - UNSP DISP FX OF FIRST CERVICAL VERTEBRA, INIT FOR CLOS FX Status: Acute Qualifiers: Encounter type: subsequent encounter Fracture type: closed (5) SDH (subdural hematoma) Code(s): I62.00 - NONTRAUMATIC SUBDURAL HEMORRHAGE, UNSPECIFIED Status: Acute (6) Asthma Code(s): J45.909 - UNSPECIFIED ASTHMA, UNCOMPLICATED Status: Chronic Qualifiers: Asthma severity: mild Asthma persistence: intermittent Asthma complication type: unspecified Qualified Code(s): J45.20 - Mild intermittent asthma, uncomplicated (7) CKD (chronic kidney disease) stage 3, GFR 30-59 ml/min Code(s): N18.3 - CHRONIC KIDNEY DISEASE, STAGE 3 (MODERATE) Status: Chronic (8) Pacemaker Code(s): Z95.0 - PRESENCE OF CARDIAC PACEMAKER Status: Chronic - Plan awaiting placement -: benadryl qhs, is on namenda bid -: continue norvasc, clonidine and lopressor -: nebs q8h -: needs frequent oral hygiene and i.spirometry * . Review of Systems - Medications/Allergies Allergies/Adverse Reactions: Allergies Allergy/AdvReac Type Severity Reaction Status Date / Time No Known Drug Allergies Allergy Verified 02/13/17 15:04 Medications: Current Medications Albuterol Sulfate (Albuterol Sulfate) 1.25 mg NEB G1DA-CV [facility] Last Admin: 02/16/17 07:51 Dose: 1.25 mg Amlodipine Besylate (Norvasc) 10 mg PO DAILY [facility] Last Admin: 02/16/17 09:21 Dose: 10 mg Bisacodyl (Dulcolax) 10 mg ME DAILY [facility] Clonidine (Catapres) 0.1 mg PO BID [facility] Last Admin: 02/16/17 09:21 Dose: 0.1 mg Dextrose/Water (Dextrose 50%) 25 gm SLOW IVP PRN PRN PRN Reason: Hypoglycemia Diphenhydramine HCl (Benadryl) 25 mg PO HS PRN PRN Reason: Insomnia Docusate Sodium (Colace) 100 mg PO DAILY [facility] Donepezil HCl (Aricept) 10 mg PO DAILY [facility] Last Admin: 02/16/17 09:21 Dose: 10 mg Famotidine (Pepcid) 20 mg SLOW IVP Q12HR [facility] Last Admin: 02/16/17 09:21 Dose: 20 mg Glucagon (Glucagon) 1 mg IM PRN PRN PRN Reason: Hypoglycemia Hydralazine HCl (Apresoline) 10 mg SLOW IVP Q6H PRN PRN Reason: SBP GREATER THAN 160 Dextrose/Water (D5w) 1,000 mls @ 0 mls/hr IV .Q0M PRN; As Directed PRN Reason: Hypoglycemia Memantine (Namenda) 10 mg PO BID [facility] Metoprolol Tartrate (Lopressor) 25 mg PO BID [facility] Last Admin: 02/16/17 09:21 Dose: 25 mg Montelukast Sodium (Singulair) 10 mg PO HS [facility] Last Admin: 02/15/17 20:40 Dose: 10 mg Ondansetron HCl (Zofran) 4 mg IVP Q6H PRN PRN Reason: Nausea Senna (Senokot) 2 tab PO DAILY [facility] Sodium Chloride (Flush - Normal Saline) 10 ml IVF PRN PRN PRN Reason: Saline Flush
[2017-02-16] MEDS ORDERED: Senokot 8.6 MG TAB PO SCH (11:30)
[2017-02-16] MEDS ORDERED: Bisacodyl 10 MG SUPP PR SCH (11:30)
[2017-02-16] MEDS ORDERED: Docusate 100 MG CAP PO SCH (11:30)
[2017-02-16] MEDS: Montelukast Sodium 10 mg Tablet PO SCH (20:46)
[2017-02-17] MEDS: Albuterol Sulfate 1.25 MG/3 ML NEB NEB SCH ×4 (00:25→22:19)
[2017-02-17] MEDS ORDERED: Docusate 100 MG CAP PO SCH (09:00)
[2017-02-17] MEDS: Bisacodyl 10 MG SUPP PR SCH (09:12)
[2017-02-17] MEDS: Amlodipine 10 MG TAB PO SCH (09:12)
[2017-02-17] MEDS: Famotidine/PF 20 mg/2ml Vial SLOW IVP SCH (09:12)
[2017-02-17] MEDS: Senokot 8.6 MG TAB PO SCH (09:13)
[2017-02-17] MEDS: cloNIDine 0.1 MG TAB PO SCH ×2 (09:14→21:12)
[2017-02-17] MEDS: Metoprolol Tartrate 25 MG TAB PO SCH ×2 (09:14→21:12)
[2017-02-17] MEDS: Donepezil HCl 10 MG TAB PO SCH (09:14)
[2017-02-17] MEDS ORDERED: Fleet Enema 133 ML BOT PR PRN (11:02)
--- NOTE | 2017-02-17 11:47 | PDOC.PN ---
- Subjective Encounter Start Date: 02/17/17 Encounter Start Time: 09:50 Subjective: is awake, on bed -: no cough, is sporadically using i.spirometer - Objective Resuscitation Status: Resuscitation Status DNR:Do Not Resuscitate MAR Reviewed: Yes Vital Signs & Weight: Vital Signs (12 hours) Temp Pulse Resp BP BP Pulse Ox 02/17/17 09:14 135/71 02/17/17 09:12 76 135/71 02/17/17 08:00 98.4 F 76 18 135/71 99 02/17/17 03:52 99 F 88 16 143/78 H 96 02/17/17 00:28 96 02/17/17 00:25 96 02/16/17 23:51 99.3 F 65 20 120/70 96 Weight Weight 188 lb 3 oz I&O: 02/16/17 02/17/17 02/18/17 06:59 06:59 06:59 Intake Total 890 855 Balance 890 855 Result Diagrams: 02/14/17 04:50 02/14/17 04:50 Phys Exam - Physical Examination scalp sutures look clean HEENT: PERRLA, moist MMs Neck: no JVD, supple Respiratory: no wheezing, no rales Cardiovascular: RRR, no significant murmur Gastrointestinal: soft, non-tender, positive bowel sounds Musculoskeletal: no edema, pulses present Neurological: non-focal, moves all 4 limbs Dx/Plan (1) Paroxysmal A-fib Code(s): I48.0 - PAROXYSMAL ATRIAL FIBRILLATION Status: Chronic (2) HTN (hypertension) Code(s): I10 - ESSENTIAL (PRIMARY) HYPERTENSION Status: Chronic Qualifiers: Hypertension type: essential hypertension Qualified Code(s): I10 - Essential (primary) hypertension (3) Dementia Code(s): F03.90 - UNSPECIFIED DEMENTIA WITHOUT BEHAVIORAL DISTURBANCE Status: Chronic Qualifiers: Dementia type: Alzheimer's disease Alzheimer's disease onset: unspecified onset Dementia behavioral disturbance: with behavioral disturbance Qualified Code(s): G30.9 - Alzheimer's disease, unspecified; F02.81 - Dementia in other diseases classified elsewhere with behavioral disturbance; F02.81 - Dementia in other diseases classified elsewhere with behavioral disturbance; F02.81 - Dementia in other diseases classified elsewhere with behavioral disturbance (4) C1 cervical fracture Code(s): S12.000A - UNSP DISP FX OF FIRST CERVICAL VERTEBRA, INIT FOR CLOS FX Status: Acute Qualifiers: Encounter type: subsequent encounter Fracture type: closed (5) SDH (subdural hematoma) Code(s): I62.00 - NONTRAUMATIC SUBDURAL HEMORRHAGE, UNSPECIFIED Status: Acute (6) Asthma Code(s): J45.909 - UNSPECIFIED ASTHMA, UNCOMPLICATED Status: Chronic Qualifiers: Asthma severity: mild Asthma persistence: intermittent Asthma complication type: unspecified Qualified Code(s): J45.20 - Mild intermittent asthma, uncomplicated (7) CKD (chronic kidney disease) stage 3, GFR 30-59 ml/min Code(s): N18.3 - CHRONIC KIDNEY DISEASE, STAGE 3 (MODERATE) Status: Chronic (8) Pacemaker Code(s): Z95.0 - PRESENCE OF CARDIAC PACEMAKER Status: Chronic - Plan awaiting placement -: amb with PT as tolerated -: htn is stable on clonidine, norvasc and lopressor -: on aricept and namenda with benadryl prn HS -: nebs, i.spirometer * . Review of Systems - Medications/Allergies Allergies/Adverse Reactions: Allergies Allergy/AdvReac Type Severity Reaction Status Date / Time No Known Drug Allergies Allergy Verified 02/13/17 15:04 Medications: Current Medications Albuterol Sulfate (Albuterol Sulfate) 1.25 mg NEB [id number] [facility] Last Admin: 02/17/17 11:09 Dose: Not Given Amlodipine Besylate (Norvasc) 10 mg PO DAILY [facility] Last Admin: 02/17/17 09:12 Dose: 10 mg Bisacodyl (Dulcolax) 10 mg MS DAILY [facility] Last Admin: 02/17/17 09:12 Dose: 10 mg Clonidine (Catapres) 0.1 mg PO BID [facility] Last Admin: 02/17/17 09:14 Dose: 0.1 mg Dextrose/Water (Dextrose 50%) 25 gm SLOW IVP PRN PRN PRN Reason: Hypoglycemia Diphenhydramine HCl (Benadryl) 25 mg PO HS PRN PRN Reason: Insomnia Docusate Sodium (Colace) 100 mg PO DAILY [facility] Last Admin: 02/17/17 09:14 Dose: 100 mg Donepezil HCl (Aricept) 10 mg PO DAILY [facility] Last Admin: 02/17/17 09:14 Dose: 10 mg Famotidine (Pepcid) 20 mg PO BID [facility] Glucagon (Glucagon) 1 mg IM PRN PRN PRN Reason: Hypoglycemia Hydralazine HCl (Apresoline) 10 mg SLOW IVP Q6H PRN PRN Reason: SBP GREATER THAN 160 Dextrose/Water (D5w) 1,000 mls @ 0 mls/hr IV .Q0M PRN; As Directed PRN Reason: Hypoglycemia Magnesium Hydroxide (Milk Of Magnesium) 30 ml PO Q6HR [facility] Memantine (Namenda) 10 mg PO BID [facility] Last Admin: 02/17/17 09:12 Dose: 10 mg Metoprolol Tartrate (Lopressor) 25 mg PO BID [facility] Last Admin: 02/17/17 09:14 Dose: 25 mg Montelukast Sodium (Singulair) 10 mg PO HS [facility] Last Admin: 02/16/17 20:46 Dose: 10 mg Ondansetron HCl (Zofran) 4 mg IVP Q6H PRN PRN Reason: Nausea Senna (Senokot) 2 tab PO DAILY [facility] Last Admin: 02/17/17 09:13 Dose: 2 tab Sodium Biphosphate/Sodium Phosphate (Fleet Enema) 133 ml MS DAILYPRN PRN PRN Reason: Constipation Sodium Chloride (Flush - Normal Saline) 10 ml IVF PRN PRN PRN Reason: Saline Flush Last Admin: 02/17/17 09:17 Dose: 10 ml
[2017-02-17] MEDS: Milk Of Magnesia 30 ML UDCUP PO SCH ×2 (12:48→18:22)
--- NOTE | 2017-02-17 13:41 | PRG ---
DATE OF SERVICE: 02/16/2017 ATTENDING PHYSICIAN: Mike Luque M.D. This is Aretha Rodriguez, nurse practitioner dictating daily progress note for Dr. Mike Luque. SUBJECTIVE: A 71-year-old male, hospital day number 4 status post fall with C1 burst fracture and tentorial subdural hematoma. He has been cleared by Neurosurgery for discharge. He is currently awaiting placement in a [facility] facility. He had been stable in the surgical floor with a sitter at bedside. He has been ambulating with PT. He has not required any p.r.n. medication for agitation. OBJECTIVE: VITAL SIGNS: Temperature 98.4, pulse 76, respirations 18, O2 sat 99% on room air, blood pressure 135/71. GENERAL: Well-nourished, well-developed male, in no acute distress. HEENT: Scalp laceration and cranial and occipital scalp closed with sutures. No evidence of infection. PULMONARY: Bilateral breath sounds clear to auscultation. No respiratory distress. CARDIOVASCULAR: Regular rate and rhythm. Normal heart sounds. ABDOMEN: Soft, nontender, nondistended. EXTREMITIES: Moves all extremities well. Cap refill brisk. NEUROLOGIC: GCS 14, E4, V4, M6. [place] collar in place. Able to speak his name. Follows commands. ASSESSMENT: 1. A 71-year-old male, status post fall. 2. Minimal subdural hematoma. 3. C1 fracture managed in [place] collar. 4. Chronic atrial fibrillation, previously on Eliquis. 5. History of Alzheimer's. 6. Status post closure of scalp laceration with sutures. PLAN: 1. Continue current care as ordered. 2. Continue to mobilize with physical and occupational therapy. 3. Continue sitter at bedside due to the patient's impulsiveness and dementia. 4. Continue to hold chemical DVT prophylaxis until cleared by Neurosurgery. Continue to hold Eliquis until cleared by Neurosurgery. 5. Benadryl 25 mg p.r.n. at bedtime as needed for agitation. The patient was reviewed with Dr. Luque who agrees with the assessment and plan. [facility]
--- NOTE | 2017-02-17 18:42 | PRG ---
DATE OF SERVICE: 02/17/2017 Fatemeh Olivier is a 71-year-old male with scalp laceration, C1 fracture from height fall. He thrasher s severe Alzheimer's. He has a C1 fracture treated nonoperatively, in a collar. We are awaiting mari cement for him. I agree with care and history and physical per physician's Methods Analyst.
[2017-02-17] MEDS: Famotidine 20 MG TAB PO SCH (21:12)
[2017-02-17] MEDS: Montelukast Sodium 10 mg Tablet PO SCH (21:12)
[2017-02-18] MEDS: Milk Of Magnesia 30 ML UDCUP PO SCH ×4 (00:23→18:10)
[2017-02-18] MEDS: Albuterol Sulfate 1.25 MG/3 ML NEB NEB SCH ×3 (06:26→20:01)
--- NOTE | 2017-02-18 09:03 | ULT ---
BILATERAL LOWER EXTREMITY VENOUS DOPPLER ULTRASOUND: DATE: 02/18/17. COMPARISON: None. HISTORY: Immobilized patient, recent head trauma, evaluate for deep venous thrombosis. TECHNIQUE: Multiplanar, kate scale sonographic imaging of bilateral lower extremity venous structures obtained w ith color flow and spectral analysis. FINDINGS: Bilateral common femoral veins, greater saphenous veins, profunda femoral veins, femoral veins, popli teal veins, and posterior tibial veins are patent. There is normal blood flow, augmentation, and com pression within the deep venous system bilaterally. No evidence for DVT on either side. IMPRESSION: No evidence for deep venous thrombosis of either lower extremity. POS: [facility]
[2017-02-18] MEDS: Senokot 8.6 MG TAB PO SCH (09:34)
[2017-02-18] MEDS: Metoprolol Tartrate 25 MG TAB PO SCH ×2 (09:34→20:56)
[2017-02-18] MEDS: Amlodipine 10 MG TAB PO SCH (09:34)
[2017-02-18] MEDS: Polyethylene Glycol 3350 17 GM Packet PO SCH (09:35)
[2017-02-18] MEDS: Donepezil HCl 10 MG TAB PO SCH (09:36)
[2017-02-18] MEDS: cloNIDine 0.1 MG TAB PO SCH ×2 (09:36→20:55)
[2017-02-18] MEDS: Bisacodyl 10 MG SUPP PR SCH (09:36)
[2017-02-18] MEDS: Famotidine 20 MG TAB PO SCH ×2 (09:36→20:56)
--- NOTE | 2017-02-18 12:33 | PDOC.PN ---
- Subjective Encounter Start Date: 02/18/17 Encounter Start Time: 10:15 Subjective: not in distress, is on bed -: not oriented - Objective Resuscitation Status: Resuscitation Status DNR:Do Not Resuscitate MAR Reviewed: Yes Vital Signs & Weight: Vital Signs (12 hours) Temp Pulse Resp BP Pulse Ox 02/18/17 09:35 98.3 F 80 14 02/18/17 08:00 98.3 F 80 14 134/69 92 L 02/18/17 06:26 62 16 92 L 02/18/17 04:00 98.1 F 65 16 126/72 93 L Weight Weight 188 lb 3 oz I&O: 02/17/17 02/18/17 02/19/17 06:59 06:59 06:59 Intake Total 855 655 Balance 855 655 Result Diagrams: 02/14/17 04:50 02/14/17 04:50 Phys Exam - Physical Examination HEENT: PERRLA, moist MMs Neck: no JVD, supple Respiratory: no wheezing, no rales Cardiovascular: RRR, no significant murmur Gastrointestinal: soft, non-tender, positive bowel sounds Musculoskeletal: no edema, pulses present Neurological: non-focal, moves all 4 limbs Dx/Plan (1) Paroxysmal A-fib Code(s): I48.0 - PAROXYSMAL ATRIAL FIBRILLATION Status: Chronic (2) HTN (hypertension) Code(s): I10 - ESSENTIAL (PRIMARY) HYPERTENSION Status: Chronic Qualifiers: Hypertension type: essential hypertension Qualified Code(s): I10 - Essential (primary) hypertension (3) Dementia Code(s): F03.90 - UNSPECIFIED DEMENTIA WITHOUT BEHAVIORAL DISTURBANCE Status: Chronic Qualifiers: Dementia type: Alzheimer's disease Alzheimer's disease onset: unspecified onset Dementia behavioral disturbance: with behavioral disturbance Qualified Code(s): G30.9 - Alzheimer's disease, unspecified; F02.81 - Dementia in other diseases classified elsewhere with behavioral disturbance; F02.81 - Dementia in other diseases classified elsewhere with behavioral disturbance; F02.81 - Dementia in other diseases classified elsewhere with behavioral disturbance (4) C1 cervical fracture Code(s): S12.000A - UNSP DISP FX OF FIRST CERVICAL VERTEBRA, INIT FOR CLOS FX Status: Acute Qualifiers: Encounter type: subsequent encounter Fracture type: closed (5) SDH (subdural hematoma) Code(s): I62.00 - NONTRAUMATIC SUBDURAL HEMORRHAGE, UNSPECIFIED Status: Acute (6) Asthma Code(s): J45.909 - UNSPECIFIED ASTHMA, UNCOMPLICATED Status: Chronic Qualifiers: Asthma severity: mild Asthma persistence: intermittent Asthma complication type: unspecified Qualified Code(s): J45.20 - Mild intermittent asthma, uncomplicated (7) CKD (chronic kidney disease) stage 3, GFR 30-59 ml/min Code(s): N18.3 - CHRONIC KIDNEY DISEASE, STAGE 3 (MODERATE) Status: Chronic (8) Pacemaker Code(s): Z95.0 - PRESENCE OF CARDIAC PACEMAKER Status: Chronic - Plan hemostable -: has been accepted to [facility] -: dc plan per trauma team advice -: meds reconciled * . Review of Systems - Medications/Allergies Allergies/Adverse Reactions: Allergies Allergy/AdvReac Type Severity Reaction Status Date / Time No Known Drug Allergies Allergy Verified 02/13/17 15:04 Medications: Current Medications Albuterol Sulfate (Albuterol Sulfate) 1.25 mg NEB TID-RT [facility] Amlodipine Besylate (Norvasc) 10 mg PO DAILY [facility] Last Admin: 02/18/17 09:34 Dose: 10 mg Bisacodyl (Dulcolax) 10 mg ID DAILY [facility] Last Admin: 02/18/17 09:36 Dose: Not Given Clonidine (Catapres) 0.1 mg PO BID [facility] Last Admin: 02/18/17 09:36 Dose: 0.1 mg Dextrose/Water (Dextrose 50%) 25 gm SLOW IVP PRN PRN PRN Reason: Hypoglycemia Diphenhydramine HCl (Benadryl) 25 mg PO HS PRN PRN Reason: Insomnia Donepezil HCl (Aricept) 10 mg PO DAILY [facility] Last Admin: 02/18/17 09:36 Dose: 10 mg Famotidine (Pepcid) 20 mg PO BID [facility] Last Admin: 02/18/17 09:36 Dose: 20 mg Glucagon (Glucagon) 1 mg IM PRN PRN PRN Reason: Hypoglycemia Hydralazine HCl (Apresoline) 10 mg SLOW IVP Q6H PRN PRN Reason: SBP GREATER THAN 160 Dextrose/Water (D5w) 1,000 mls @ 0 mls/hr IV .Q0M PRN; As Directed PRN Reason: Hypoglycemia Magnesium Hydroxide (Milk Of Magnesium) 30 ml PO Q6HR [facility] Last Admin: 02/18/17 11:50 Dose: Not Given Memantine (Namenda) 10 mg PO BID [facility] Last Admin: 02/18/17 09:35 Dose: 10 mg Metoprolol Tartrate (Lopressor) 25 mg PO BID [facility] Last Admin: 02/18/17 09:34 Dose: 25 mg Montelukast Sodium (Singulair) 10 mg PO HS [facility] Last Admin: 02/17/17 21:12 Dose: 10 mg Ondansetron HCl (Zofran) 4 mg IVP Q6H PRN PRN Reason: Nausea Polyethylene Glycol (Miralax) 17 gm PO DAILY [facility] Last Admin: 02/18/17 09:35 Dose: Not Given Senna (Senokot) 2 tab PO DAILY [facility] Last Admin: 02/18/17 09:34 Dose: Not Given Sodium Biphosphate/Sodium Phosphate (Fleet Enema) 133 ml ID DAILYPRN PRN PRN Reason: Constipation Sodium Chloride (Flush - Normal Saline) 10 ml IVF PRN PRN PRN Reason: Saline Flush Last Admin: 02/17/17 09:17 Dose: 10 ml
--- NOTE | 2017-02-18 15:29 | PRG ---
DATE OF SERVICE: 02/18/2017 ATTENDING PHYSICIAN: Chris Wilson M.D. This is Aretha Rodriguez, nurse practitioner, dictating daily progress note for Dr. Bernard Wilson. SUBJECTIVE: A 71-year-old male, hospital day #5, status post fall with C1 burst fracture and tentori al subdural hematoma. He has been cleared by Neurosurgery for discharge. He is currently awaiting p lacement in a alf facility. He has been stable on the surgical floor with a sitter at [facility]. He has been ambulating with PT. OBJECTIVE: VITAL SIGNS: Temperature 98.3, pulse 80, respirations 14, oxygen 92%, blood pressure 134/69. GENERAL: Well-nourished, well-developed male, in no acute distress. HEENT: Scalp laceration to crown and occipital scalp, closed with sutures. No evidence of infection . PULMONARY: Bilateral breath sounds clear to auscultation. No respiratory distress. CARDIOVASCULAR: Regular rate and rhythm. Normal heart sounds. ABDOMEN: Soft, nontender, nondistended. EXTREMITIES: Moves all extremities well. Cap refill brisk. NEUROLOGIC: GCS 14, E4, V4, M6. [place] collar in place. Able to speak his name. Follows commands. ASSESSMENT: 1. A 71-year-old male status post fall. 2. Minimal subdural hematoma. 3. C1 fracture, managed in [place] collar. 4. Chronic atrial fibrillation, previously on Eliquis. 5. History of Alzheimer's. 6. Status post closure of scalp with sutures. PLAN: 1. Continue current care as ordered. 2. Continue to mobilize with physical and occupational therapy. 3. Continue sitter at bedtime due to the patient's impulsiveness and dementia. 4. Continue to hold deep venous thrombosis prophylaxis and/or Eliquis until cleared by Neurosurgery. 5. Case management following for placement. Anticipate the patient will be discharged to a alf facility in [place], [place]. The patient was reviewed with Dr. Wilson, who agrees with the assessment and plan.
[2017-02-18] MEDS: Montelukast Sodium 10 mg Tablet PO SCH (20:56)
[2017-02-18] MEDS: diphenhydrAMINE 25 MG CAP PO PRN (20:56)
[2017-02-19] MEDS: Milk Of Magnesia 30 ML UDCUP PO SCH ×5 (00:35→23:57)
[2017-02-19] MEDS: Albuterol Sulfate 1.25 MG/3 ML NEB NEB SCH ×3 (07:18→20:17)
[2017-02-19] MEDS: Polyethylene Glycol 3350 17 GM Packet PO SCH (14:16)
[2017-02-19] MEDS: Metoprolol Tartrate 25 MG TAB PO SCH ×2 (14:16→21:24)
[2017-02-19] MEDS: Amlodipine 10 MG TAB PO SCH (14:17)
[2017-02-19] MEDS: Famotidine 20 MG TAB PO SCH ×2 (14:17→21:24)
[2017-02-19] MEDS: cloNIDine 0.1 MG TAB PO SCH ×2 (14:17→21:24)
[2017-02-19] MEDS: Senokot 8.6 MG TAB PO SCH (14:17)
[2017-02-19] MEDS: Bisacodyl 10 MG SUPP PR SCH (14:18)
[2017-02-19] MEDS: Donepezil HCl 10 MG TAB PO SCH (15:56)
--- NOTE | 2017-02-19 19:16 | PDOC.PN ---
- Subjective Encounter Start Date: 02/19/17 Encounter Start Time: 19:10 Subjective: f/u s/p mech fall with SDH and C1 burst fx managed non-operatively -: with C-collar. Plan for SNF placement. - Objective Resuscitation Status: Resuscitation Status DNR:Do Not Resuscitate MAR Reviewed: Yes Vital Signs & Weight: Vital Signs (12 hours) Temp Pulse Resp BP BP Pulse Ox 02/19/17 16:00 98.5 F 97 20 175/90 H 95 02/19/17 14:17 77 161/72 H 02/19/17 12:00 98.5 F 77 16 165/79 H 96 02/19/17 11:19 84 14 93 L 02/19/17 10:25 98.4 F 84 14 02/19/17 08:00 98.4 F 68 14 148/83 H 96 02/19/17 07:18 75 14 92 L Weight Weight 188 lb 3 oz I&O: 02/18/17 02/19/17 02/20/17 06:59 06:59 06:59 Intake Total 655 600 Balance 655 600 Result Diagrams: 02/14/17 04:50 02/14/17 04:50 Radiology Reviewed by me: Yes (BLE sono - neg DVT) Phys Exam - Physical Examination Constitutional: NAD HEENT: PERRLA, oral pharynx no lesions Neck: no JVD, supple Respiratory: no wheezing Cardiovascular: RRR Gastrointestinal: soft, non-tender, no distention, positive bowel sounds Musculoskeletal: no edema, pulses present Neurological: normal sensation, moves all 4 limbs Skin: normal turgor, cap refill <2 seconds Dx/Plan (1) C1 cervical fracture Code(s): S12.000A - UNSP DISP FX OF FIRST CERVICAL VERTEBRA, INIT FOR CLOS FX Status: Acute Qualifiers: Encounter type: subsequent encounter Fracture type: closed Comment: Non-operative mgmt with C-collar, pain control, PT (2) SDH (subdural hematoma) Code(s): I62.00 - NONTRAUMATIC SUBDURAL HEMORRHAGE, UNSPECIFIED Status: Acute Comment: Non-operative mgmt (3) CKD (chronic kidney disease) stage 3, GFR 30-59 ml/min Code(s): N18.3 - CHRONIC KIDNEY DISEASE, STAGE 3 (MODERATE) Status: Chronic Comment: Stable (4) Dementia Code(s): F03.90 - UNSPECIFIED DEMENTIA WITHOUT BEHAVIORAL DISTURBANCE Status: Chronic Qualifiers: Dementia type: Alzheimer's disease Alzheimer's disease onset: unspecified onset Dementia behavioral disturbance: with behavioral disturbance Qualified Code(s): G30.9 - Alzheimer's disease, unspecified; F02.81 - Dementia in other diseases classified elsewhere with behavioral disturbance; F02.81 - Dementia in other diseases classified elsewhere with behavioral disturbance; F02.81 - Dementia in other diseases classified elsewhere with behavioral disturbance Comment: Continue Namenda and Aricept (5) HTN (hypertension) Code(s): I10 - ESSENTIAL (PRIMARY) HYPERTENSION Status: Chronic Qualifiers: Hypertension type: essential hypertension Qualified Code(s): I10 - Essential (primary) hypertension Comment: Labile, monitor trend - Plan PT/OT, social work nurse, DVT proph w/SCDs Stable currently -: C-collar for non-operative mgmt -: PT/OT -: Plan for SNF transfer, likely in am -: Ensure TID with meals * .
[2017-02-19] MEDS: Montelukast Sodium 10 mg Tablet PO SCH (21:23)
[2017-02-19] MEDS: diphenhydrAMINE 25 MG CAP PO PRN (21:24)
[2017-02-20] MEDS: Milk Of Magnesia 30 ML UDCUP PO SCH (05:16)
--- NOTE | 2017-02-20 05:46 | PRG ---
DATE OF SERVICE: 02/19/2017 SUBJECTIVE: The patient is a 71-year-old man, hospital day #6 status post fall with a C1 burst fract ure and subdural hematoma. The patient's injury is being managed nonoperatively and with a cervical immobilization device. The patient is currently awaiting placement. He required a sitter for most o f his first days here in the hospital. He did not require a sitter last night, but it was noted that because the patient had a bed alarm and camera for observation, the facility that he was to be place d in would not accept him yet. We will attempt to get clarification on this or try another facility. Otherwise, there were no issues last night. The patient had no issues again without having a sitte r. OBJECTIVE: VITAL SIGNS: Temperature is 98.4, heart rate 68, blood pressure 148/83, respirations 14 and oxygen s aturation is 96% on room air. GENERAL: The patient is resting comfortably in bed. From what I am being told he is at baseline on his mental status due to his history of Alzheimer's. HEENT: The patient's scalp wound is still intact with sutures and those sutures will most likely be removed tomorrow. PULMONARY: Clear breath sounds bilaterally. HEART: Regular rate and rhythm. ABDOMEN: Soft, flat with active bowel sounds. EXTREMITIES: The patient is moving all 4 extremities at time to command. ASSESSMENT AND PLAN: 1. Status post ground level fall. 2. Small subdural hematoma. 3. C1 burst fracture, being treated with an [place] collar. 4. History of Alzheimer's. 5. Status post closure of scalp wound. Plan will be to continue supportive care. Await placement decision. This case was discussed with Dr. Wilson at rounds.
[2017-02-20] MEDS: Albuterol Sulfate 1.25 MG/3 ML NEB NEB SCH (06:57)
[2017-02-20] MEDS: Metoprolol Tartrate 25 MG TAB PO SCH (09:34)
[2017-02-20] MEDS: Donepezil HCl 10 MG TAB PO SCH (09:34)
[2017-02-20] MEDS: Famotidine 20 MG TAB PO SCH (09:34)
[2017-02-20] MEDS: Amlodipine 10 MG TAB PO SCH (09:34)
[2017-02-20 09:35] VITALS: BP 149/73
[2017-02-20] MEDS: cloNIDine 0.1 MG TAB PO SCH (09:35)
[2017-02-20 10:34] VITALS: TEMP 98.4
--- NOTE | 2017-02-20 14:10 | DIS ---
DATE OF ADMISSION: 02/13/2017 DATE OF DISCHARGE: 02/20/2017 DISCHARGE DIAGNOSES: 1. Status post mechanical fall with C1 cervical burst fracture, nonoperatively managed with [place] J collar. 2. Subdural hematoma, status post mechanical fall, nonoperative management. 3. Chronic kidney disease, stage 3. 4. Advanced Alzheimer's dementia. 5. Hypertension, labile. 6. Chronic atrial fibrillation with chronic anticoagulation with Eliquis discontinued. 7. Status post scalp laceration post-mechanical fall with primary closure. PRIMARY SERVICE ATTENDING: Dr. Sanchez. CONSULTATIONS: Dr. Daniels with Neurosurgical Service. Dr. Wilson with General Surgery Service. So und for general medical management. PERTINENT LABORATORY AND X-RAY FINDINGS: Creatinine 1.34 with estimated GFR of 52, magnesium 2.2, ph osphorus 3.1. LFTs within normal limits. CBC showed a white blood cell count ranging between 11.8-1 4.6, hemoglobin ranging between 14.8-17.9. CT of the brain without contrast dated 02/13/2017 showed chronic changes consistent with age. CT of the cervical spine dated 02/13/2017 showed a C1 fracture of the left axillary ring. Portable chest x-ray dated 02/13/2017 showed no acute cardiopulmonary pro cess. CT of the facial bones dated 02/13/2017 showed slightly depressed fracture of the distal nasal ridge. Age indeterminate. Repeat CT of the brain dated 02/14/2017 showed question of minimal left tentorial subdural hemorrhage. Bilateral lower extremity venous Doppler study dated 02/18/2017 showe d no evidence for DVT. HOSPITAL COURSE: Patient was initially admitted under the Trauma Service presenting status post unwi tnessed mechanical fall, sustaining a scalp laceration. The patient underwent extensive evaluation i ncluding multiple imaging studies showing minimal subdural hematoma, managed nonoperatively. CT of t he cervical spine revealed a burst fracture of C1, managed with a C-collar and nonoperatively. The p atient was given pain control and discontinued on anticoagulation therapy, which the patient had been taking for chronic atrial fibrillation. The patient had primary repair of his scalp laceration, rec eiving local wound care throughout the hospital course. Due to patient's overall deconditioned statu s, history of falls, and advanced Alzheimer dementia, the patient was deemed an appropriate candidate for ongoing supervised and skilled care. The patient has been approved for transfer to [facility] on 02/20/2017. DISCHARGE MEDICATIONS: 1. Albuterol sulfate 1.25 mg nebulized t.i.d. p.r.n. 2. Norvasc 10 mg 1 tab p.o. daily. 3. Vitamin D3 2000 units p.o. daily. 4. Clonidine 0.1 mg p.o. b.i.d. 5. Benadryl 25 mg p.o. at bedtime p.r.n. 6. Aricept 10 mg one tab p.o. daily. 6. Pepcid 20 mg 1 tab p.o. b.i.d. 7. Namenda 10 mg 1 tab p.o. b.i.d. 8. Metoprolol tartrate 25 mg p.o. b.i.d. 9. Singulair 10 mg p.o. at bedtime. 10. MiraLax 17 grams p.o. daily. 11. Senokot 2 tablets p.o. daily p.r.n. constipation. FOLLOWUP: The patient will follow up with his primary care provider, Dr. Smith, after discharge from [facility]. The patient will follow up with Dr. Joseph Daniels with Neurosurgical [facility] and to call his office for appointment time and date. Patient will follow up with Dr. Daniel garcia Trauma Surgery as needed and to call his office for appointment time and date. CONDITION ON DISCHARGE: Stable. ACTIVITY: Contact guard/standby assist with high fall risk precautions. Rolling walker recommended. DIET: Regular as tolerated. SPECIAL INSTRUCTIONS: Continue [place] J collar per neurosurgical recommendations. CODE STATUS: FULL. DISPOSITION: Discharge to [facility], 02/20/2017.
== END 2017-02-20 10:15 | disposition swing bed (61) | DRG 551 ==
LOC: ERS 08:47 → 2SE 11:12 → IMCU/EMU 20:36 → SURG B 02-14 19:20
PROVIDERS: ADMIT Surgery; ATTEND Surgery
PROC: 0HQ0XZZ Repair Scalp Skin, External Approach (ICD-10-PCS; principal; 2017-02-13)
DX: S12.01XA Stable burst fracture of first cervical vertebra, initial encounter for closed fracture (principal); S06.5X0A Traumatic subdural hemorrhage without loss of consciousness, initial encounter; I48.0 Paroxysmal atrial fibrillation; F05 Delirium due to known physiological condition; G30.9 Alzheimer's disease, unspecified; S01.01XA Laceration without foreign body of scalp, initial encounter; I12.9 Hypertensive chronic kidney disease with stage 1 through stage 4 chronic kidney disease, or unspecified chronic kidney disease; J45.20 Mild intermittent asthma, uncomplicated; F02.81 Dementia in other diseases classified elsewhere, unspecified severity, with behavioral disturbance; F32.9 Major depressive disorder, single episode, unspecified; N18.3 Chronic kidney disease, stage 3 (moderate); W18.30XA Fall on same level, unspecified, initial encounter; Y92.019 Unspecified place in single-family (private) house as the place of occurrence of the external cause; Z95.0 Presence of cardiac pacemaker; Z79.01 Long term (current) use of anticoagulants; Z66 Do not resuscitate
CPT/HCPCS: 36415; 70450; 70486; 71010; 72125; 80048; 80053; 82550; 82553; 83690; 83735; 84100; 84484; 85025; 85610; 85730; 93005; 93970; 94640; G8978-GP-CL; G8979-GP-CJ; G8987-GO-CL; G8988-GO-CI; J2001; J3486; S0028

== ENCOUNTER 2017-03-13 14:15 | Outpatient (CLI) | payer MEDICARE ==
--- NOTE | 2017-03-13 15:12 | RAD ---
CERVICAL SPINE FOUR VIEWS: History: Neck pain. FINDINGS: Vertebral body height and alignment are maintained. A moderate degree of osteophytosis is present thr oughout the vertebral bodies and facets. No acute fracture, dislocation, or aggressive osseous erosio ns are apparent. IMPRESSION: Cervical spondylosis. No acute osseous abnormalities are demonstrated. POS: [facility]
--- NOTE | 2017-03-13 16:34 | CT ---
HEAD CT WITHOUT CONTRAST: Date: 03-13-17 Comparison: 02-14-17 History: Re-evaluate subdural hematoma. Technique: Serial axial CT imaging is obtained at 5 mm intervals from the vertex through the skull ba se without contrast. FINDINGS: Detailed assessment is somewhat limited secondary to persistent patient head motion artifact. There i s mucosal thickening involving the left frontal sinus, bilateral ethmoid air cells, bilateral maxilla ry sinuses, and bilateral sphenoid sinuses. There is no displaced calvarial fracture. There is no discrete intracranial hemorrhage, midline shift , or mass effect. There is mild diffuse cerebral volume loss with associated prominence of the CSF co ntaining spaces. There is atherosclerotic calcification of the distal vertebral arteries, left greate r than right. IMPRESSION: No intracranial hemorrhage or displaced calvarial fracture. POS: [facility]
== END 2017-03-13 14:16 | disposition home or self-care (01) ==
LOC: TBSIIMAG 14:15
PROVIDERS: ATTEND Surgery
DX: S06.5X0A Traumatic subdural hemorrhage without loss of consciousness, initial encounter (principal); S12.000A Unspecified displaced fracture of first cervical vertebra, initial encounter for closed fracture
CPT/HCPCS: 70450; 72040

== ENCOUNTER 2017-04-24 12:41 | Outpatient (CLI) | payer MEDICARE ==
--- NOTE | 2017-04-24 15:00 | CT ---
CT OF HEAD NONCONTRAST: Indication: History of Alzheimer's disease with prior fall, injury, intermittent headaches. FINDINGS: There is no acute intracranial hemorrhage, mass effect, or midline shift. Ventricular system is stabl e in size. There is mild parenchymal volume loss. There is scattered paranasal sinus mucosal thickeni ng. No depressed calvarial fracture. IMPRESSION: No acute intracranial findings. POS: [facility]
--- NOTE | 2017-04-24 15:35 | CT ---
CERVICAL SPINE CT NONCONTRAST 04/24/17 CLINICAL HISTORY: Neck injury, pain. History of prior fracture. Reference made to 02/13/17 exam. FINDINGS: There has been interval healing of the previously described anterior and posterior arch fractures of C1. There is slight lateral subluxation of the left lateral mass of C1 relative to C2. The dens is in tact. There is multilevel mild degenerative changes of the cervical spine without fracture or signifi cant subluxation. No retropulsion of bone into vertebral canal or evidence of acute facet malalignmen t. IMPRESSION: Healing C1 fractures. POS: [facility]
== END 2017-04-24 12:42 | disposition home or self-care (01) ==
LOC: TBSIIMAG 12:41
PROVIDERS: ATTEND Surgery
DX: S06.5X0A Traumatic subdural hemorrhage without loss of consciousness, initial encounter (principal); S12.9XXA Fracture of neck, unspecified, initial encounter
CPT/HCPCS: 70450; 72125